=== PATIENT | male | born 1980 | race Caucasian/White ===

== ENCOUNTER 2023-05-14 08:22 | Day surgery (SDC) | payer BC, OTHER ==
[2023-05-09 14:02] LABS: BASOPHILS # (AUTO) 0.1 X10'3 (0-0.2); BASOPHILS % (AUTO) 0.9 % (0-1); EOSINOPHILS # (AUTO) 0.2 X10'3 (0-0.9); EOSINOPHILS % (AUTO) 2.4 % (0-6); LYMPHOCYTES # (AUTO) 1.8 X10'3 (1.1-4.8); MEAN CORPUSCULAR HEMOGLOBIN 29.8 PG (27.0-31.0); MEAN CORPUSCULAR HGB CONC 34.3 g/dL (33.0-36.5); MEAN CORPUSCULAR VOLUME 86.8 FL (78-98); MEAN PLATELET VOLUME 8.7 FL (7.4-10.4); MONOCYTES # (AUTO) 0.7 X10'3 (0-0.9); MONOCYTES % (AUTO) 8.2 % (2-12); NEUTROPHILS % (AUTO) 68.5 % (42-75); PRE OP HEMATOCRIT 47.3 % (42.0-52.0); PRE OP HEMOGLOBIN 16.2 g/dL (14.0-17.9); PRE OP PLATELET COUNT 238 X10'3 (140-440); PRE OP WHITE BLOOD COUNT 8.8 10'3 (4.8-10.8); RED BLOOD COUNT 5.45 X10'6 (4.70-6.10); RED CELL DISTRIBUTION WIDTH 12.8 % (11.5-14.5)
[2023-05-09 14:29] LABS: ALBUMIN 4.3 G/DL (3.4-5.0); ALBUMIN/GLOBULIN RATIO 1.2 (1.1-1.5); ALKALINE PHOSPHATASE 83 IU/L (46-116); BLOOD UREA NITROGEN 14 MG/DL (7-18); BUN/CREATININE RATIO 11.5 (10.0-20.0); CALCIUM 8.5 MG/DL (8.5-10.1); CHLORIDE 106 MMOL/L (99-107); CREATININE 1.22 MG/DL (0.60-1.10); PRE OP ALT 60 U/L (30-65); PRE OP ANION GAP 9 (8-16); PRE OP AST 35 U/L (10-37); PRE OP BILIRUB, TOTAL 0.4 MG/DL (0.0-1.0); PRE OP GLUCOSE 81 MG/DL (70-104); PRE OP POTASSIUM 3.9 MMOL/L (3.4-5.1); PRE OP SODIUM 143 MMOL/L (135-145); TOTAL CARBON DIOXIDE 28.3 MMOL/L (24-32); TOTAL PROTEIN 7.8 G/DL (6.4-8.2); eGFR 65 ML/MIN
[~2023-05-14] VITALS: Ht 165.1 cm; Wt 85.9 kg
[2023-05-14] VITALS (8 sets, daily range): BP systolic 118–141; BP diastolic 70–90; PULSE 68–81; RESP 10–16; TEMP 97.7; O2SAT 95–99
[~2023-05-14 08:22] MED LIST: HYDR-3964 PO
[2023-05-14] MEDS ORDERED: LIDOcaine 2% (20mg/ml) 5ml vial ONE ×2 (09:14)
[2023-05-14] MEDS ORDERED: BUPIVAcaine/PF 2.5mg/ml (0.25%) 10ml vial ONE (09:14)
[2023-05-14] MEDS ORDERED: proCHLORperazine 10 MG/2 ml inj IV PRN (09:35)
[2023-05-14] MEDS ORDERED: ringers solution, lacted 1,000 ML IV SCH (09:35)
[2023-05-14] MEDS ORDERED: meperidine/PF 25mg/ml syringe IV PRN ×3 (09:35)
[2023-05-14] MEDS ORDERED: ondansetron/PF 4mg/2ml inj IV PRN (09:35)
[2023-05-14] MEDS ORDERED: morphine 4 MG/ML inj SYRINge IV PRN (09:35)
[2023-05-14] MEDS ORDERED: morphine 2 MG/ML inj. syringe IV PRN (09:35)
[2023-05-14] MEDS: famotidine 20mg tablet PO ONE (09:52)
[2023-05-14] MEDS: cefazolin 2gm/D5W 100mL 100 ML IV ONE (09:53)
[2023-05-14] MEDS: ringers solution, lacted 1,000 ML IV SCH (09:53)
[2023-05-14] MEDS ORDERED: midazolam 1 mg/ML 2ml injection ONE (10:05)
[2023-05-14] MEDS ORDERED: fentaNYL/PF 50MCG/1 ML 2ML syringe ONE (10:05)
[2023-05-14] MEDS ORDERED: propofol inj 20 ML IV ONE (10:06)
[2023-05-14] MEDS ORDERED: LIDOcaine 0.5% (5mg/ml) 50ml vial ONE (10:07)
[2023-05-14] MEDS: BUPIVAcaine/PF 2.5mg/ml (0.25%) 10ml vial IJ ONE (10:30)
== END 2023-05-14 11:31 | disposition home or self-care (01) ==
LOC: PAS 08:22
PROVIDERS: ATTEND Orthopaedic Surgery Hand Surgery
DX: S62.511A Displaced fracture of proximal phalanx of right thumb, initial encounter for closed fracture (principal); F41.9 Anxiety disorder, unspecified; Z72.89 Other problems related to lifestyle; Z79.899 Other long term (current) drug therapy; W23.1XXA Caught, crushed, jammed, or pinched between stationary objects, initial encounter; Y93.89 Activity, other specified; Y92.89 Other specified places as the place of occurrence of the external cause; Y99.8 Other external cause status
CPT/HCPCS: 26727; 36415; 80053; 82948; 85025; 93005; A6222; J0690; J2250; J2704; J3010; J3490; J7030; J7120; Z7506; Z7512; A4215; A4615; A4618; A6449; A7000

== ENCOUNTER 2023-06-11 21:26 | Emergency (ER) | payer OTHER ==
[~2023-06-11] VITALS: Ht 167.6 cm; Wt 84.1 kg
[2023-06-11 21:55] VITALS: TEMP 98.5
[2023-06-12] MEDS ORDERED: ketorolac trometh. 30mg/ml inj. IV ONE (01:45)
[2023-06-12] MEDS: ondansetron/PF 4mg/2ml inj IV ONE (01:58)
[2023-06-12] MEDS: morphine 4 MG/ML inj SYRINge IV ONE (01:59)
[2023-06-12] MEDS: ketorolac tromethamine 15mg/ml inj. IV ONE (02:17)
[2023-06-12] MEDS: propofol 10mg/ml 20ml vial IV ONE (02:54)
[2023-06-12] MEDS ORDERED: HYDR-3965 PO (03:00)
[2023-06-12 03:28] VITALS: BP 157/102; PULSE 101; RESP 18; O2SAT 98
== END 2023-06-12 03:38 | disposition home or self-care (01) ==
LOC: ER 21:28
DX: S43.005A Unspecified dislocation of left shoulder joint, initial encounter (principal); X58.XXXA Exposure to other specified factors, initial encounter; Y93.89 Activity, other specified; Y92.89 Other specified places as the place of occurrence of the external cause; Y99.8 Other external cause status
CPT/HCPCS: 23650; 73020; 73030; 93005; 96374; 96375; 99152; 99153; 99285; J1885; J2270; J2405; J2704; J7030; 94760; A4565; A4620